=== PATIENT | male | born 1980 | race Caucasian/White ===

== ENCOUNTER 2022-04-12 05:30 | Emergency (ER) | payer SELFPAY ==
[2022-04-12] MEDS ORDERED: HYDROMORPHONE HCL 1 MG/ML INJ ONE (05:56)
[2022-04-12] MEDS ORDERED: KETOROLAC 30 MG/ML INJ ONE (05:56)
[2022-04-12] MEDS ORDERED: ONDANSETRON 4 MG/2 ML VIAL ONE (05:56)
[2022-04-12 06:08] LABS: Absolute Lymphocytes (CBC) 3.2 K/uL (0.7-4.9); Hematocrit 44.9 % (39.6-49.0); Lymphocytes % 35.2 % (15.3-44.8); MCV 86.2 fL (80-100); RBC Red Blood Cell Count 5.21 M/uL (4.33-5.43)
[2022-04-12 06:27] LABS: Bilirubin Total 0.5 mg/dL (0.2-1.0); Potassium 3.9 mmol/L (3.5-5.1); Protein, Total 7.4 g/dL (6.4-8.2)
[2022-04-12 07:02] VITALS: TEMP 97.9
[2022-04-12 07:15] VITALS: BP 129/93; O2SAT 94
--- NOTE | 2022-04-12 09:34 | RAD REPORT ---
EXAM DESCRIPTION: CT scan of the abdomen and pelvis without contrast CLINICAL HISTORY: ABD PAIN [facility] MAIN TECHNIQUE: Helical CT examination of the abdomen and pelvis was performed from the top of the domes of the diaphragm to the pubic symphysis without the administration of intravenous or oral contrast as per renal stone protocol. Sagittal and coronal reconstructions were performed for review. This exa m was performed according to our departmental dose-optimization program, which includes automated exp osure control, adjustment of the mA and/or kV according to patient size and/or use of iterative recon struction technique. COMPARISON: None FINDINGS: Lower chest: The lower lung parenchyma appears unremarkable. There is no infiltrate, e ffusion or pneumothorax. Small hiatal hernia noted at the GE junction. The visualized cardiac and pos terior mediastinal structures are otherwise unremarkable. ABDOMEN: Organs: The liver appears unremarkable. There is no evidence for mass or intrahepatic biliary ducta l dilatation. The gallbladder appears unremarkable. There is no evidence for stone, gallbladder wa ll thickening or pericholecystic fluid. The pancreas, adrenal glands and spleen appear unremarkabl e. Kidneys: There is mild right-sided hydronephrosis extending down to a 2 mm stone at the right UPJ o n image 40. No left-sided hydronephrosis or ureterolithiasis. No nephrolithiasis seen on either side. Bowel: Colonic diverticulosis is identified. No focal inflammatory changes are seen to suggest ac ruel diverticulitis.The large and small bowel of the abdomen and pelvis is otherwise unremarkable. The re is no evidence for bowel obstruction. The appendix is seen adjacent to the cecum and appears nor mal. PELVIS: The urinary bladder appears unremarkable. No intrapelvic free fluid or free air identified. No lympha denopathy seen. The prostate and seminal vesicles are unremarkable. Bones and soft tissues: No acute osseous abnormalities are identified. The soft tissues are unremar kable. IMPRESSION: There is a 2 mm stone at the right UPJ with mild right-sided hydronephrosis. No other acute process seen in the abdomen/pelvis. Mild colonic diverticulosis without evidence of diverticulitis. Normal appendix. Small hiatal hernia. Electronically signed by: Dawood Cádrenas MD 04/12/2022 6:17 AM [facility] [employer] [id number] Due to temporary technical issues with the PACS/Fluency reporting system, reports are being signed by the in house radiologists without review as a courtesy to insure prompt reporting. The interpreting radiologist is fully responsible for the content of the report.
--- NOTE | 2022-04-28 15:22 | ER ---
Nurse's Notes [facility] Name: Jean Paul Kemp II Age: 41 yrs Sex: Male : 1980 Arrival Date: 04/12/2022 Time: 05:33 Bed 5 Private MD: Diagnosis: Ureterolithiasis, right kidney stone, hydronephrosis Presentation: 04/12 05:46 Chief complaint: Patient states: he started having severe lower back pain and urinating bb blood this morning has had lithotripsy in the past for an 8mm kidney stone. Coronavirus screen: At this time, the client does not indicate any symptoms associated with coronavirus-19. Ebola Screen: No symptoms or risks identified at this time. Initial Sepsis Screen: Does the patient meet any 2 criteria? No. Patient's initial sepsis screen is negative. Does the patient have a suspected source of infection? No. Patient's initial sepsis screen is negative. Risk Assessment: Do you want to hurt yourself or someone else? Patient reports no desire to harm self or others. Onset of symptoms was April 12, 2022. 05:46 Method Of Arrival: Ambulatory bb 05:46 Acuity: ANNELIESE 2 bb Historical: - Allergies: 05:48 PENICILLINS; bb 05:48 Chocolate; bb - Home Meds: 05:48 None [Active]; bb - PMHx: 05:48 kidney stones; bb - PSHx: 05:48 Lithotripsy; bb - Immunization history:: vaccinated. - Social history:: Smoking status: Patient denies any tobacco usage or history of. Screenin:02 [facility] ED Fall Risk Assessment (Adult) History of falling in the last 3 months, bb including since admission No falls in past 3 months (0 pts) Confusion or Disorientation No (0 pts) Intoxicated or Sedated No (0 pts) Impaired Gait No (0 pts) Score/Fall Risk Level 0 - 2 = Low Risk Oriented to surroundings, Maintained a safe environment. Abuse screen: Denies threats or abuse. Nutritional screening: No deficits noted. Tuberculosis screening: No symptoms or risk factors identified. Assessment: 06:02 General: Appears uncomfortable, ill, Behavior is cooperative, anxious. Pain: Complains bb of pain in back Pain currently is 10 out of 10 on a pain scale. Neuro: Level of Consciousness is awake, alert, obeys commands, Oriented to person, place, time, situation. Cardiovascular: Capillary refill < 3 seconds Patient's skin is warm and dry. Respiratory: Respiratory effort is unlabored, Respiratory pattern is regular. GI: Abdomen is non-distended. : Reports blood in urine. Derm: Skin is pink, warm \T\ dry. Musculoskeletal: Circulation, motion, and sensation intact. 06:25 Reassessment: Patient is alert, oriented x 3, equal unlabored respirations, skin bb warm/dry/pink. Patient states feeling better. Patient states symptoms have improved. 06:38 Reassessment: Patient appears in no apparent distress at this time. Panda FORTUNE at bedside.aa9 06:47 Reassessment: Patient appears in no apparent distress at this time. Patient is alert, aa9 oriented x 3, equal unlabored respirations, skin warm/dry/pink. pt understand instructions and medication prescription, denies concerns Patient states feeling better. Patient states symptoms have improved. Vital Signs: 05:46 BP 147 / 107; Pulse 63; Resp 20 S; Temp 97.9(O); Pulse Ox 99% on R/A; Weight 90.72 kg bb (R); Height 5 ft. 9 in. (R); Pain 10/10; 06:15 BP 127 / 89; Pulse 59; Resp 16 S; Pulse Ox 96% on R/A; aa9 06:26 Pain 3/10; bb 06:30 BP 129 / 93; Pulse 62; Resp 16; Pulse Ox 94% on R/A; aa9 05:46 Body Mass Index 29.53 (90.72 kg, 175.26 cm) bb 05:46 Pain Scale: Adult bb 06:26 Pain Scale: Adult bb ED Course: 05:33 Patient arrived in ED. [id number] 05:35 Lupe Mosqueda MD is Attending Physician. sp3 05:48 Triage completed. bb 05:48 Arm band placed on Patient placed in a hallway bed, on a stretcher, on pulse oximetry. bb 05:49 Initial lab(s) drawn, by me, sent to lab. Inserted saline lock: 20 gauge in right bb antecubital area, using aseptic technique. Blood collected. 06:02 Patient has correct armband on for positive identification. Placed in gown. Call light bb in reach. Side rails up X 1. Pulse ox on. NIBP on. 06:05 Stone Protocol In Process Unspecified. EDMS 06:38 No provider procedures requiring assistance completed. aa9 06:47 IV discontinued, intact, bleeding controlled, No redness/swelling at site. Pressure aa9 dressing applied. Administered Medications: 05:53 Drug: HYDROmorphone IVP 1 mg Route: IVP; Site: right antecubital; bb 06:24 Follow up: Response: Pain is decreased bb 05:57 Drug: Ondansetron IVP 4 mg Route: IVP; Site: right antecubital; bb 06:24 Follow up: Response: No adverse reaction bb 06:00 Drug: TORadol - Ketorolac IVP 15 mg Route: IVP; Site: right antecubital; bb 06:25 Follow up: Response: Pain is decreased bb Medication: 06:02 VIS not applicable for this client. bb Outcome: 06:37 Discharge ordered by . efra 06:47 Discharged to home aa9 06:47 Condition: stable 06:47 Discharge instructions given to patient, Instructed on discharge instructions, follow up and referral plans. medication usage, Demonstrated understanding of instructions, follow-up care, medications, Prescriptions given X 1. 06:48 Patient left the ED. aa9 Signatures: Dispatcher [employer] EDJeanne Devine RN RN bb Lupe Mosqueda MD MD sp3 Linda Dickey6 Amy Orozco RN RN aa9
--- NOTE | 2022-04-28 15:22 | EDPHYS ---
Physician Documentation [facility] Name: Jean Paul Kemp II Age: 41 yrs Sex: Male : 1980 Arrival Date: 04/12/2022 Time: 05:33 Bed 5 Private MD: ED Physician Lupe Mosqueda HPI: 04/12 05:59 This 41 yrs old Male presents to ER via Ambulatory with complaints of Low Back Pain, sp3 Urinary Problem, Nausea/Vomiting. 05:59 41-year-old male with a history of kidney stones with the last one being in 2017 at 8 sp3 mm requiring lithotripsy, now presents with chief complaint right-sided flank pain that started approximately 3:30 AM which is waxing and waning and got worse about an hour ago after which she decided to come to the ED for further intervention. Patient has no other past medical history or past surgical history. On review of systems, he denies fever, URI symptoms, chest pain, shortness of breath, intra-abdominal pain, diarrhea, rash, syncope, or any other signs or symptoms. He does endorse nausea with mild dry heaves vomiting.. Historical: - Allergies: 05:48 PENICILLINS; bb 05:48 Chocolate; bb - Home Meds: 05:48 None [Active]; bb - PMHx: 05:48 kidney stones; bb - PSHx: 05:48 Lithotripsy; bb - Immunization history:: vaccinated. - Social history:: Smoking status: Patient denies any tobacco usage or history of. ROS: 06:00 Constitutional: Negative for fever, chills, and weight loss, Eyes: Negative for injury, sp3 pain, redness, and discharge, ENT: Negative for injury, pain, and discharge, Neck: Negative for injury, pain, and swelling, Cardiovascular: Negative for chest pain, palpitations, and edema, Respiratory: Negative for shortness of breath, cough, wheezing, and pleuritic chest pain, MS/Extremity: Negative for injury and deformity, Skin: Negative for injury, rash, and discoloration, Neuro: Negative for headache, weakness, numbness, tingling, and seizure, Psych: Negative for depression, anxiety, suicide ideation, homicidal ideation, and hallucinations, Allergy/Immunology: Negative for hives, rash, and allergies, Endocrine: Negative for neck swelling, polydipsia, polyuria, polyphagia, and marked weight changes. 06:00 All other systems are negative. Exam: 06:01 Constitutional: This is a well developed, well nourished patient who is awake, alert, sp3 and in no acute distress. Head/Face: Normocephalic, atraumatic. Eyes: Pupils equal round and reactive to light, extra-ocular motions intact. Lids and lashes normal. Conjunctiva and sclera are non-icteric and not injected. Cornea within normal limits. Periorbital areas with no swelling, redness, or edema. Neck: Trachea midline, no thyromegaly or masses palpated, and no cervical lymphadenopathy. Supple, full range of motion without nuchal rigidity, or vertebral point tenderness. No Meningismus. Chest/axilla: Normal chest wall appearance and motion. Nontender with no deformity. No lesions are appreciated. Cardiovascular: Regular rate and rhythm with a normal S1 and S2. No gallops, murmurs, or rubs. Normal PMI, no JVD. No pulse deficits. Respiratory: Lungs have equal breath sounds bilaterally, clear to auscultation and percussion. No rales, rhonchi or wheezes noted. No increased work of breathing, no retractions or nasal flaring. Abdomen/GI: Soft, non-tender, with normal bowel sounds. No distension or tympany. No guarding or rebound. No evidence of tenderness throughout. Skin: Warm, dry with normal turgor. Normal color with no rashes, no lesions, and no evidence of cellulitis. MS/ Extremity: Pulses equal, no cyanosis. Neurovascular intact. Full, normal range of motion. Neuro: Awake and alert, GCS 15, oriented to person, place, time, and situation. Cranial nerves II-XII grossly intact. Motor strength 5/5 in all extremities. Sensory grossly intact. Cerebellar exam normal. Normal gait. Psych: Awake, alert, with orientation to person, place and time. Behavior, mood, and affect are within normal limits. 06:01 Back: Right CVA tenderness. Vital Signs: 05:46 BP 147 / 107; Pulse 63; Resp 20 S; Temp 97.9(O); Pulse Ox 99% on R/A; Weight 90.72 kg bb (R); Height 5 ft. 9 in. (R); Pain 10/10; 06:15 BP 127 / 89; Pulse 59; Resp 16 S; Pulse Ox 96% on R/A; aa9 06:26 Pain 3/10; bb 06:30 BP 129 / 93; Pulse 62; Resp 16; Pulse Ox 94% on R/A; aa9 05:46 Body Mass Index 29.53 (90.72 kg, 175.26 cm) bb 05:46 Pain Scale: Adult bb 06:26 Pain Scale: Adult bb MDM: 05:39 Patient medically screened. sp3 06:01 Data reviewed: vital signs, nurses notes, lab test result(s), radiologic studies. ED sp3 course: 41-year-old male with right flank pain with likely kidney stone/ureterolithiasis. Will obtain CT scan kidney stone protocol, laboratory values, urine analysis and administer analgesics as necessary along with antiemetics for symptomatic treatment. I am not highly suspicious for any other pathology including UTI/pyelonephritis spectrum, AAA, intestinal pathology, or any other critical findings at this time. Disposition to be based on patient course as well as data with likely discharge with urology follow-up.. 06:35 ED course: Patient much improved after pain medication. CT scan demonstrates 2 mm stone sp3 at the right UPJ with mild hydronephrosis. Given patient's clinical picture and complete normal serum laboratory values, we will discharge patient home on oral NSAIDs with urology follow-up.. 04/12 05:47 Order name: CBC with Diff; Complete Time: 06:29 sp3 04/12 05:47 Order name: CMP; Complete Time: 06:29 sp3 04/12 05:47 Order name: Lipase; Complete Time: 06:29 sp3 04/12 06:05 Order name: Stone Protocol EDMS 04/12 05:47 Order name: IV Saline Lock; Complete Time: 06:01 sp3 04/12 05:47 Order name: Labs collected and sent; Complete Time: 06:01 sp3 Administered Medications: 05:53 Drug: HYDROmorphone IVP 1 mg Route: IVP; Site: right antecubital; bb 06:24 Follow up: Response: Pain is decreased bb 05:57 Drug: Ondansetron IVP 4 mg Route: IVP; Site: right antecubital; bb 06:24 Follow up: Response: No adverse reaction bb 06:00 Drug: TORadol - Ketorolac IVP 15 mg Route: IVP; Site: right antecubital; bb 06:25 Follow up: Response: Pain is decreased bb Disposition Summary: 04/12/22 06:37 Discharge Ordered Location: Home sp3 Condition: Stable sp3 Diagnosis - Ureterolithiasis, right kidney stone, hydronephrosis sp3 Discharge Instructions: - Discharge Summary Sheet sp3 - Kidney Stones sp3 Forms: - Medication Reconciliation Form sp3 - Thank You Letter sp3 - Antibiotic Education sp3 - Prescription Opioid Use sp3 Prescriptions: - Diclofenac Sodium 75 mg Oral Tablet Sustained Release - take 1 tablet by ORAL route 2 times per day; 30 tablet; Refills: 0, Product sp3 Selection Permitted Signatures: Dispatcher [employer] Jeanne Cox RN RN bb Patel, Setul, MD MD sp3 Corrections: (The following items were deleted from the chart) 06:05 05:48 Abdomen Pelvis Wo Con+CT.RAD.BRZ ordered. EDMS EDMS
== END 2022-04-12 06:48 | disposition home or self-care (01) ==
LOC: ER 05:30
DX: N13.2 Hydronephrosis with renal and ureteral calculous obstruction (principal); Z87.442 Personal history of urinary calculi; Z88.0 Allergy status to penicillin; Z91.018 Allergy to other foods
CPT/HCPCS: 36415; 74176; 76377; 80053; 83690; 85025; 96374; 96375; 99284; J1170; J2405

== ENCOUNTER 2022-04-16 12:26 | Emergency (ER) | payer SELFPAY ==
[2022-04-16] MEDS ORDERED: KETOROLAC 30 MG/ML INJ ONE (13:04)
[2022-04-16] MEDS ORDERED: NA CHLORIDE 0.9% 1,000 ML ONE ×2 (13:04→16:10)
[2022-04-16 13:11] LABS: Absolute Lymphocytes (CBC) 2.9 K/uL (0.7-4.9); Hematocrit 44.5 % (39.6-49.0); Lymphocytes % 29.6 % (15.3-44.8); MCV 86.4 fL (80-100); MPV 9.4 fL (7.6-11.3); RBC Red Blood Cell Count 5.15 M/uL (4.33-5.43)
[2022-04-16 13:28] LABS: Albumin 4.1 g/dL (3.4-5.0); Bilirubin Total 0.4 mg/dL (0.2-1.0); Potassium 4.2 mmol/L (3.5-5.1); Protein, Total 7.7 g/dL (6.4-8.2)
[2022-04-16] MEDS ORDERED: MAGNESIUM SULFATE 1 gm IVPB 1 GM/100 ML BAG IV ONE (13:30)
[2022-04-16] MEDS ORDERED: MORPHINE 4 MG/ML SYR ONE (16:09)
[2022-04-16] MEDS ORDERED: TAMSULOSIN 0.4 MG SR CAP ONE (16:10)
[2022-04-16] MEDS ORDERED: ONDANSETRON 4 MG/2 ML VIAL ONE (16:10)
[2022-04-16 16:38] LABS: Urine Blood Negative (Negative); Urine Glucose Negative (Negative); Urine Protein Negative (Negative); Urine Specific Gravity 1.015 (1.005-1.030); Urine pH 6.5 (5.0-7.0)
[2022-04-16 19:14] VITALS: TEMP 97.7
[2022-04-16 19:23] VITALS: O2SAT 99
[2022-04-16 19:24] VITALS: BP 123/86
--- NOTE | 2022-04-28 17:19 | EDPHYS ---
Physician Documentation [facility] Name: Jean Paul Kemp II Age: 41 yrs Sex: Male : 1980 Arrival Date: 04/16/2022 Time: 12:27 Bed 7 Private MD: ED Physician Yasir Womack HPI: 04/16 12:50 This 41 yrs old Male presents to ER via Ambulatory with complaints of Flank Pain - jmm right. 12:50 The patient complains of pain in the right flank. Onset: The symptoms/episode jmm began/occurred acutely, today. Is a 41-year-old male with history of kidney stones presents emerged part with complaints of right flank pain. Patient states he was initially diagnosed 3 days ago. Was prescribed diclofenac. Patient states pain intensified this morning. Denies any vomiting or diarrhea. Denies fever. Denies dysuria.. Historical: - Allergies: 12:41 PENICILLINS; kr3 12:41 Chocolate; kr3 - PMHx: 12:41 Kidney stones; kr3 - PSHx: 12:41 Lithotripsy; kr3 - Immunization history:: Adult Immunizations up to date, Adult Immunizations not up to date. - Social history:: Smoking status: Smoking status: Patient denies any tobacco usage or history of. ROS: 12:50 Constitutional: Negative for fever, chills, and weight loss, Cardiovascular: Negative jmm for chest pain, palpitations, and edema, Respiratory: Negative for shortness of breath, cough, wheezing, and pleuritic chest pain. 12:50 Back: Positive for flank pain, on the right. 12:50 All other systems are negative. Exam: 12:50 Head/Face: atraumatic. Eyes: EOMI, no conjunctival erythema appreciated ENT: Moist jmm Mucus Membranes Neck: Trachea midline, Supple Chest/axilla: Normal chest wall appearance and motion. Cardiovascular: Regular rate and rhythm. No edema appreciated Respiratory: Normal respirations, no respiratory distress appreciated Abdomen/GI: Non distended 12:50 MS/ Extremity: Moves all extremities, no obvious deformities appreciated, no edema noted to the lower extremities Neuro: Awake and alert Psych: Behavior is normal, Mood is normal, Patient is cooperative and pleasant 12:50 Constitutional: The patient appears alert, awake, uncomfortable. 12:50 Back: CVA tenderness, that is mild, is noted on the right. Vital Signs: 12:39 BP 144 / 93; Pulse 70; Resp 22; Temp 97.7; Pulse Ox 99% on R/A; Weight 90.72 kg; Height kr3 5 ft. 10 in. ; Pain 10/10; 13:02 BP 132 / 93; Pulse 68; Resp 18; Pulse Ox 100% on R/A; Pain 10/10; ld1 13:44 BP 129 / 81; Pulse 61; Resp 18; Pulse Ox 99% on R/A; Pain 9/10; ld1 14:18 BP 118 / 79; Pulse 53; Resp 18; Pulse Ox 99% on R/A; ld1 14:45 BP 128 / 80; Pulse 69; Resp 18; Pulse Ox 100% ; ld1 15:49 BP 109 / 80; Pulse 64; Resp 18; Pulse Ox 99% on R/A; ld1 16:42 BP 123 / 86; Pulse 62; Resp 18; Pulse Ox 99% on R/A; ld1 12:39 Body Mass Index 28.70 (90.72 kg, 177.8 cm) kr3 12:39 Pain Scale: Adult kr3 13:02 Pain Scale: Adult ld1 13:44 Pain Scale: Adult ld1 MDM: 12:50 [facility] 17:38 Differential diagnosis: nephrolithiasis. Data reviewed: vital signs, nurses notes, lab [facility] test result(s). I considered the following discharge prescriptions or medication management in the emergency department Medications were administered in the Emergency Department. See MAR. External Records Reviewed: NURSING TECHN aware negative for hx of controlled substances. Counseling: I had a detailed discussion with the patient and/or guardian regarding: the historical points, exam findings, and any diagnostic results supporting the discharge/admit diagnosis, radiology results, the need for outpatient follow up, to return to the emergency department if symptoms worsen or persist or if there are any questions or concerns that arise at home. ED course: Pain relieved in the ED. Patient prescribed Flomax and analgesics to help with the discomfort. Patient otherwise advised to follow-up with urology.. 04/16 12:51 Order name: CBC with Diff; Complete Time: 13:13 [facility] 04/16 12:51 Order name: CMP; Complete Time: 13:31 [facility] 04/16 12:51 Order name: Lipase; Complete Time: 13:31 [facility] 04/16 16:39 Order name: Urine Dipstick-Ancillary; Complete Time: 16:43 [facility] 04/16 12:51 Order name: IV Saline Lock; Complete Time: 13:02 [facility] 04/16 12:51 Order name: Labs collected and sent; Complete Time: 13:02 [facility] 04/16 16:27 Order name: Urine Dipstick-Ancillary (obtain specimen); Complete Time: 16:42 [facility] Administered Medications: 13:01 Drug: Ketorolac IVP 30 mg Route: IVP; Site: left antecubital; ld1 13:29 Follow up: Response: No adverse reaction; Pain is decreased ld1 13:01 Drug: NS 0.9% IV 1000 ml Route: IV; Rate: 1 bolus; Site: left antecubital; ld1 14:34 Follow up: Response: No adverse reaction; IV Status: Completed infusion; IV Intake: ld1 1000ml 13:28 Drug: Magnesium Sulfate IVPB 1 grams Route: IVPB; Infused Over: 1 hrs; Site: left ld1 antecubital; 14:30 Follow up: Response: No adverse reaction; IV Status: Completed infusion; IV Intake: nj1 100ml 16:12 Drug: morphine IVP or IV 4 mg Route: IVP; Infused Over: 4 mins; Site: left antecubital; ld1 16:12 Drug: Ondansetron IVP 4 mg Route: IVP; Site: left antecubital; ld1 16:12 Drug: NS 0.9% IV 1000 ml Route: IV; Rate: 1 bolus; Site: left antecubital; ld1 16:12 Drug: Flomax PO 0.4 mg Route: PO; ld1 Disposition: 19:04 Co-signature as Attending Physician, Yasir Womack MD I reviewed the patient's care rt provided by the Advanced Practice Provider and agree with the diagnosis and treatment plan. Disposition Summary: 04/16/22 17:40 Discharge Ordered Location: Home [facility] Condition: Stable [facility] Diagnosis - Calculus of ureter [facility]up[facility] - With: Dimitris Bianchi MD - When: 2 - 3 days - Reason: Recheck today's complaints, Continuance of care, Re-evaluation by your physician Discharge Instructions: - Discharge Summary Sheet [facility] - [facility]ney Stones [facility] - Dietary Guidelines to Help Prevent [facility]ney Stones [facility] Forms: - Medication Reconciliation Form [facility] - Thank You Letter [facility] - Antibiotic Education [facility] - Prescription Opioid Use [facility] Prescriptions: - ondansetron 4 mg Oral Tablet,disintegrating - take 1 tablet by ORAL route every 4-6 hours As needed as needed for nausea and jmm vomiting; 20 tablet; Refills: 0, Product Selection Permitted - Flomax 0.4 mg Oral capsule - take 1 capsule by ORAL route every 24 hours; 10 capsule; Refills: 0, Product [facility] Selection Permitted - Ultracet 37.5-325 mg Oral Tablet - take 1 tablet by ORAL route every 6 hours - for up to 5 days; do not exceed 8 jmm tablets per day.; 20 tablet; Refills: 0, Product Selection Permitted Signatures: Dispatcher [employer] EDDawood Finney PA PA [facility] Melinda Kearney, RN RN ld1 Sandrine Elaine RN RN kr3 Yasir Womack MD MD rt Michelle Izquierdo RN nj1
--- NOTE | 2022-04-28 17:19 | ER ---
Nurse's Notes [facility] Name: Jean Paul Kemp II Age: 41 yrs Sex: Male : 1980 Arrival Date: 04/16/2022 Time: 12:27 Bed 7 Private MD: Diagnosis: Calculus of ureter Presentation: 04/16 12:39 Chief complaint: Patient states: lower right side flank pain. Coronavirus screen: kr3 Vaccine status: Patient reports receiving the 2nd dose of the covid vaccine. Ebola Screen: Patient denies travel to an Ebola-affected area in the 21 days before illness onset. Initial Sepsis Screen: Does the patient meet any 2 criteria? No. Patient's initial sepsis screen is negative. Does the patient have a suspected source of infection? No. Patient's initial sepsis screen is negative. Risk Assessment: Do you want to hurt yourself or someone else? Patient reports no desire to harm self or others. Onset of symptoms was April 16, 2022. 12:39 Method Of Arrival: Ambulatory [facility] 12:39 Acuity: ANNELIESE 3 kr3 Triage Assessment: 12:42 General: Appears distressed, uncomfortable, Behavior is cooperative, appropriate for kr3 age, restless. Pain: Complains of pain in low back area, right mid back and right low back. Historical: - Allergies: 12:41 PENICILLINS; kr3 12:41 Chocolate; kr3 - PMHx: 12:41 Kidney stones; kr3 - PSHx: 12:41 Lithotripsy; kr3 - Immunization history:: Adult Immunizations up to date, Adult Immunizations not up to date. - Social history:: Smoking status: Smoking status: Patient denies any tobacco usage or history of. Screenin:02 [facility] ED Fall Risk Assessment (Adult) History of falling in the last 3 months, ld1 including since admission No falls in past 3 months (0 pts). Abuse screen: Denies threats or abuse. Denies injuries from another. Nutritional screening: No deficits noted. Tuberculosis screening: No symptoms or risk factors identified. Assessment: 13:02 General: Appears in no apparent distress. uncomfortable, Behavior is cooperative, ld1 anxious. Pain: Complains of pain in back and right low back and right mid back and low back area Pain does not radiate. Pain currently is 10 out of 10 on a pain scale. Quality of pain is described as sharp, shooting, throbbing, Pain began 4 hours ago. Is continuous. Neuro: Level of Consciousness is awake, alert, obeys commands, Oriented to person, place, time, situation. Cardiovascular: Capillary refill < 3 seconds Patient's skin is warm and dry. Respiratory: Airway is patent Respiratory effort is even, unlabored. GI: Abdomen is flat, non-distended. : Reports pain in bilateral flank(s). EENT: No signs and/or symptoms were reported regarding the EENT system. Derm: No signs and/or symptoms reported regarding the dermatologic system. Musculoskeletal: No signs and/or symptoms reported regarding the musculoskeletal system. 13:44 Reassessment: Patient and/or family updated on plan of care and expected duration. Pain ld1 level reassessed. Patient is alert, oriented x 3, equal unlabored respirations, skin warm/dry/pink. Patient states symptoms have not improved. 14:30 Reassessment: Patient appears in no apparent distress at this time. Patient and/or nj1 family updated on plan of care and expected duration. Pain level reassessed. Patient is alert, oriented x 3, equal unlabored respirations, skin warm/dry/pink. Patient states feeling better. Patient states symptoms have improved. 14:30 Pain: Complains of pain in right low back Pain currently is 3 out of 10 on a pain nj1 scale. at worst was 10 out of 10 on a pain scale. Vital Signs: 12:39 BP 144 / 93; Pulse 70; Resp 22; Temp 97.7; Pulse Ox 99% on R/A; Weight 90.72 kg; Height kr3 5 ft. 10 in. ; Pain 10/10; 13:02 BP 132 / 93; Pulse 68; Resp 18; Pulse Ox 100% on R/A; Pain 10/10; ld1 13:44 BP 129 / 81; Pulse 61; Resp 18; Pulse Ox 99% on R/A; Pain 9/10; ld1 14:18 BP 118 / 79; Pulse 53; Resp 18; Pulse Ox 99% on R/A; ld1 14:45 BP 128 / 80; Pulse 69; Resp 18; Pulse Ox 100% ; ld1 15:49 BP 109 / 80; Pulse 64; Resp 18; Pulse Ox 99% on R/A; ld1 16:42 BP 123 / 86; Pulse 62; Resp 18; Pulse Ox 99% on R/A; ld1 12:39 Body Mass Index 28.70 (90.72 kg, 177.8 cm) kr3 12:39 Pain Scale: Adult kr3 13:02 Pain Scale: Adult ld1 13:44 Pain Scale: Adult ld1 ED Course: 12:27 Patient arrived in ED. am2 12:30 Dawood Pantoja PA is PHCP. [facility] 12:30 Yasir Womack MD is Attending Physician. jmm 12:41 Triage completed. kr3 12:42 Arm band placed on right wrist. Patient placed in an exam room, on a stretcher. kr3 12:57 Melinda Kearney RN is Primary Nurse. ld1 13:02 Patient has correct armband on for positive identification. Placed in gown. Bed in low ld1 position. Call light in reach. Side rails up X2. ekg monitor tech on. Pulse ox on. NIBP on. Door closed. Noise minimized. Warm blanket given. 13:02 No provider procedures requiring assistance completed. Inserted saline lock: 20 gauge ld1 in left antecubital area, using aseptic technique. Blood collected. 17:40 Dimitris Bianchi MD is Referral Physician. [facility] 18:03 IV discontinued, intact, bleeding controlled, No redness/swelling at site. Pressure ko1 dressing applied. Administered Medications: 13:01 Drug: Ketorolac IVP 30 mg Route: IVP; Site: left antecubital; ld1 13:29 Follow up: Response: No adverse reaction; Pain is decreased ld1 13:01 Drug: NS 0.9% IV 1000 ml Route: IV; Rate: 1 bolus; Site: left antecubital; ld1 14:34 Follow up: Response: No adverse reaction; IV Status: Completed infusion; IV Intake: ld1 1000ml 13:28 Drug: Magnesium Sulfate IVPB 1 grams Route: IVPB; Infused Over: 1 hrs; Site: left ld1 antecubital; 14:30 Follow up: Response: No adverse reaction; IV Status: Completed infusion; IV Intake: nj1 100ml 16:12 Drug: morphine IVP or IV 4 mg Route: IVP; Infused Over: 4 mins; Site: left antecubital; ld1 16:12 Drug: Ondansetron IVP 4 mg Route: IVP; Site: left antecubital; ld1 16:12 Drug: NS 0.9% IV 1000 ml Route: IV; Rate: 1 bolus; Site: left antecubital; ld1 16:12 Drug: Flomax PO 0.4 mg Route: PO; ld1 Medication: 13:02 VIS not applicable for this client. ld1 Intake: 14:30 IV: 100ml; Total: 100ml. nj1 14:34 IV: 1000ml; Total: 1100ml. ld1 Outcome: 17:40 Discharge ordered by . reagan 18:03 Discharged to home ambulatory. ko1 18:03 Condition: good 18:03 Discharge instructions given to patient, Instructed on discharge instructions, follow up and referral plans. medication usage, urine strainer, Demonstrated understanding of instructions, follow-up care, medications, Prescriptions given X 3. 18:15 Patient left the ED. ko1 Signatures: Dawood Pantoja PA PA jmm Moreno, Amanda am2 Melinda Kearney RN RN ld1 Sandrine Elaine RN RN kr3 Ana Noble, RN RN ko1 Michelle Izquierdo, GLYNN RN nj1
== END 2022-04-16 18:15 | disposition home or self-care (01) ==
LOC: ER 12:26
DX: N20.1 Calculus of ureter (principal); Z87.442 Personal history of urinary calculi; Z88.0 Allergy status to penicillin; Z91.018 Allergy to other foods
CPT/HCPCS: 36415; 80053; 81003; 83690; 85025; 96361; 96365; 96375; 99284; J2405; J3475; J7030

== ENCOUNTER 2023-11-26 20:17 | Emergency (ER) | payer OTHER ==
[2023-11-26] MEDS ORDERED: KETOROLAC 30 MG/ML INJ ONE (20:43)
[2023-11-26] MEDS ORDERED: NA CHLORIDE 0.9% 1,000 ML ONE (20:44)
[2023-11-26 20:58] LABS: Absolute Basophils 0.1 K/uL (0-0.5); Absolute Eosinophils 0.1 K/uL (0-0.5); Absolute Lymphocytes (CBC) 3.5 K/uL (0.7-4.9); Absolute Neutrophil 6.2 K/uL (1.8-8.0); Basophils % 0.9 % (0-1.3); Eosinophils % 1.4 % (0-4.4); Hematocrit 47.1 % (39.6-49.0); Hemoglobin 16.2 g/dL (13.6-17.9); Lymphocytes % 32.1 % (15.3-44.8); MCH 30.2 pg (27.0-35.0); MCHC 34.4 g/dL (32.0-36.0); MCV 87.8 fL (80-100); MPV 9.6 fL (7.6-11.3); Neutrophils % 56.6 % (41.7-73.7); Nucleated Red Blood Cells % 0.1 % (0-0); Platelets 166 thou/uL (152-406); RBC Red Blood Cell Count 5.36 M/uL (4.33-5.43); Red Cell Distribution Width 12.9 % (12.1-15.2)
[2023-11-26 20:59] LABS: Specific Gravity 1.013 (1.005-1.030); Urine Bilirubin NEGATIVE (Negative); Urine Blood Negative (Negative); Urine Clarity Clear (Clear); Urine Color Light-Yellow (Yellow); Urine Glucose NEGATIVE (Negative); Urine Ketones NEGATIVE (Negative); Urine Microscopic Reflex YN NO UMIC; Urine Nitrite NEGATIVE (Negative); Urine Protein NEGATIVE (Negative); Urine Urobilinogen Normal (Normal); Urine pH 5.5 (5.0-7.0)
[2023-11-26 21:21] LABS: Albumin 4.2 g/dL (3.4-5.0); Albumin/Globulin Ratio 1.1 (1.1-1.8); Anion Gap 7.8 mEq/L (5.0-15.0); Bilirubin Total 0.5 mg/dL (0.2-1.0); Potassium 3.8 mEq/L (3.5-5.1); Protein, Total 8.2 g/dL (6.4-8.2)
--- NOTE | 2023-11-26 22:02 | RAD REPORT ---
EXAMINATION: CT ABDOMEN AND PELVIS WITH CONTRAST CLINICAL INDICATION: Abdominal pain TECHNIQUE: CT abdomen and pelvis was performed, after the administration of 100 cc Isovue-300.. Sagit maria esther and coronal reconstructions were obtained. One or more of the following dose reduction techniques were used: Automated exposure control, adjustment of the mA and kV according to patient si ze, and iterative reconstruction. Unless otherwise specified, incidental findings do not require dedicated imaging follow-up. [id number]. Oral contrast was not given which limits evaluation of bowel and appendix. COMPARISON: 2022 FINDINGS: Tiny hepatic cyst. 1spleen, pancreas, adrenals and kidneys appear unremarkable No evidence of diverticulitis. Normal appendix. Small umbilical hernia. Spondylosis L5-S1. Small right inguinal hernia contains fat : IMPRESSION: No acute abnormality displayed
--- NOTE | 2023-11-27 00:26 | EDPHYS ---
Physician Documentation [facility] Name: Jean Paul Kemp II Age: 43 yrs Sex: Male : 1980 Arrival Date: 11/26/2023 Time: 20:17 Bed 8 Private MD: ED Physician Luis A Yu HPI: 11/25 20:39 This 43 yrs old Male presents to ER via Ambulatory with complaints of sp4 Constipation. 11/26 06:11 43-year-old male presents with complaint of constipation and left lower abdominal pain sp4 for the past 3 days. Historical: - Allergies: 11/25 20:39 Chocolate; cm10 20:39 PENICILLINS; cm10 - PMHx: 20:39 Kidney stones; Diverticulitis; cm10 - PSHx: 20:39 Lithotripsy; cm10 - Immunization history:: Adult Immunizations up to date. - Infectious Disease History:: Denies. - Social history:: Smoking status: Patient denies any tobacco usage or history of. - Family history:: not pertinent. ROS: 11/26 06:11 Constitutional: Negative for fever, chills, and weight loss, Positive for constipation sp4 and left lower quadrant pain All other systems are negative, Exam: 06:11 Constitutional: This is a well developed, well nourished patient who is awake, alert, sp4 and in no acute distress. Head/Face: Normocephalic, atraumatic. Eyes: Pupils equal round and reactive to light, extra-ocular motions intact. Lids and lashes normal. Conjunctiva and sclera are not injected. Cornea within normal limits. Periorbital areas with no swelling, redness, or edema. ENT: Nares patent. No nasal discharge, no septal abnormalities noted. Tympanic membranes are normal and external auditory canals are clear. Oropharynx with no redness, swelling, or masses, exudates, or evidence of obstruction, uvula midline. Mucous membranes moist. Neck: Trachea midline, no thyromegaly or masses palpated, and no cervical lymphadenopathy. Supple, full range of motion without nuchal rigidity, or vertebral point tenderness. Chest/axilla: Normal chest wall appearance and motion. Nontender with no deformity. No lesions are appreciated. Cardiovascular: Regular rate and rhythm with a normal S1 and S2. No gallops, murmurs, or rubs. Normal PMI, no JVD. No pulse deficits. Respiratory: Lungs have equal breath sounds bilaterally, clear to auscultation and percussion. No rales, rhonchi or wheezes noted. No increased work of breathing, no retractions or nasal flaring. Abdomen/GI: Soft, with normal bowel sounds. No distension or tympany. No guarding or rebound. Positive lower abdominal tenderness without rebound Back: No spinal tenderness. No costovertebral tenderness. Skin: Warm, dry with normal turgor. Normal color with no rashes, no lesions, and no evidence of cellulitis. MS/ Extremity: Pulses equal, no cyanosis. Neurovascular intact. Full, normal range of motion. Neuro: Awake and alert, GCS 15, oriented to person, place, time, and situation. Cranial nerves II-XII grossly intact. Motor strength 5/5 in all extremities. Sensory grossly intact. Psych: Awake, alert, with orientation to person, place and time. Behavior, mood, and affect are within normal limits Vital Signs: 11/25 20:37 BP 126 / 89; Pulse 79; Resp 16; Temp 97.8(IR); Pulse Ox 100% ; Weight 95.25 kg; Height cm10 5 ft. 9 in. ; Pain 6/10; 20:55 BP 110 / 89; Pulse 64; Resp 17; Temp 97.8; Pulse Ox 96% ; Pain 5/10; bm8 21:48 BP 127 / 87; Pulse 64; Resp 17; Temp 97.8; Pulse Ox 98% ; Pain 5/10; bm8 23:58 BP 118 / 84; Pulse 65; Resp 15; Temp 97.8; Pulse Ox 98% ; Pain 4/10; bm8 20:37 Body Mass Index 31.01 (95.25 kg, 175.26 cm) cm10 20:37 Pain Scale: Adult cm10 20:55 Pain Scale: Adult bm8 21:48 Pain Scale: Adult bm8 23:58 Pain Scale: Adult bm8 Troy Coma Score: 20:55 Eye Response: spontaneous(4). Motor Response: obeys commands(6). Verbal Response: bm8 oriented(5). Total: 15. 21:48 Eye Response: spontaneous(4). Motor Response: obeys commands(6). Verbal Response: bm8 oriented(5). Total: 15. 23:58 Eye Response: spontaneous(4). Motor Response: obeys commands(6). Verbal Response: bm8 oriented(5). Total: 15. 11/26 06:11 Eye Response: spontaneous(4). Motor Response: obeys commands(6). Verbal Response: sp4 oriented(5). Total: 15. MDM: 11/25 20:41 Medical Screening Exam initiated sp4 11/26 06:11 Differential Diagnosis abdominal pain, diverticulitis, constipation . Data reviewed: sp4 vital signs, nurses notes, old medical records, lab test result(s), radiologic studies, CT scan. Consideration of Admission/Observation Escalation of care including admission/observation considered. ED course: Patient's CT does not reveal any acute abnormalities. Stable for discharge home.. ED course: EXAMINATION: CTABDOMEN AND PELVIS WITH CONTRAST CLINICAL INDICATION: Abdominal pain TECHNIQUE: CT abdomen and pelvis was performed, after the administration of 100 cc Isovue-300.. Sagittal and coronal reconstructions were obtained. One or more of the following dose reduction techniques were used: Automated exposure control, adjustment of the mA and kV according to patient size, and iterative reconstruction. Unless otherwise specified, incidental findings do not require dedicated imaging follow-up. [id number]. Oral contrast was not given which limits evaluation of bowel and appendix. COMPARISON: 2022 FINDINGS: Tiny hepatic cyst. 1spleen, pancreas, adrenals and kidneys appear unremarkable No evidence of diverticulitis. Normal appendix. Small umbilical hernia. Spondylosis L5-S1. Small right inguinal hernia contains fat : IMPRESSION: No acute abnormality displayed . 11/25 20:40 Order name: CBC with Diff; Complete Time: 00:00 4 11/25 20:40 Order name: CMP; Complete Time: 00:00 sp4 11/25 20:40 Order name: Lipase; Complete Time: 00:00 sp4 11/25 20:40 Order name: Urinalysis w/ reflexes; Complete Time: 00:00 sp4 11/25 20:40 Order name: CT Abd/Pelvis - IV Contrast Only; Complete Time: 00:00 4 11/25 20:40 Order name: IV Saline Lock; Complete Time: 20:55 sp4 11/25 20:40 Order name: Labs collected and sent; Complete Time: 20:55 sp4 Administered Medications: 11/25 20:55 Drug: TORadol - Ketorolac IVP 15 mg IVP once Route: IVP; Site: right antecubital; bm8 22:10 Follow up: Response: No adverse reaction bm8 20:55 Drug: NS 0.9% IV 1000 ml IV at 1 bolus Per protocol; to be given as a bolus over 60 bm8 minutes Route: IV; Rate: 1 bolus; Site: right antecubital; 22:10 Follow up: Response: No adverse reaction; IV Status: Completed infusion; IV Intake: bm8 1000ml Disposition Summary: 11/27/23 00:25 Discharge Ordered Problem: new sp4 Symptoms: have improved sp4 Condition: Stable sp4 Diagnosis - Lower abdominal pain, unspecified sp4 - Constipation, unspecified sp4 Followup: sp4 - With: Jovon Crow MD - When: 7 - 10 days - Reason: Recheck today's complaints Discharge Instructions: - Discharge Summary Sheet sp4 - Clear Liquid Diet, Adult, [id number] sp4 Forms: - Patient Portal Instructions sp4 Signatures: Dispatcher [employer] Luis A Dockery MD MD sp4 Samantha Jhaveri, RN RN cm10 Tim Gimenez RN RN bm8 Corrections: (The following items were deleted from the chart) 20:41 20:41 CBC+H.LAB.BRZ ordered. EDMS EDMS 20:41 20:41 COMPREHENSIVE METABOLIC PANEL+C.LAB.BRZ ordered. EDMS EDMS 20:41 20:41 LIPASE+C.LAB.BRZ ordered. EDMS EDMS 20:41 20:41 Urinalysis+U.LAB.BRZ ordered. EDMS EDMS
--- NOTE | 2023-11-27 00:26 | ER ---
Nurse's Notes [facility] Name: Jean Paul Kemp II Age: 43 yrs Sex: Male : 1980 Arrival Date: 11/26/2023 Time: 20:17 Bed 8 Private MD: Diagnosis: Lower abdominal pain, unspecified;Constipation, unspecified Presentation: 11/25 20:37 Chief complaint: Patient states: LLQ abdominal pain and constipation X3 days. cm10 Coronavirus screen: Client denies travel out of the [place] in the last 14 days. Ebola Screen: Patient denies travel to an Ebola-affected area in the 21 days before illness onset. No symptoms or risks identified at this time. Initial Sepsis Screen: Does the patient meet any 2 criteria? No. Patient's initial sepsis screen is negative. Does the patient have a suspected source of infection? No. Patient's initial sepsis screen is negative. Risk Assessment: Do you want to hurt yourself or someone else? Patient reports no desire to harm self or others. Onset of symptoms was November 23, 2023. 20:37 Method Of Arrival: Ambulatory 10 20:37 Acuity: ANNELIESE 3 cm10 Triage Assessment: 20:39 General: Appears in no apparent distress. comfortable, Behavior is calm, cooperative. cm10 Neuro: No deficits noted. Level of Consciousness is awake, alert, obeys commands, Oriented to person, place, time, situation, Appropriate for age. Respiratory: No deficits noted. Airway is patent Respiratory effort is even, unlabored, Respiratory pattern is regular, symmetrical. Historical: - Allergies: 20:39 Chocolate; cm10 20:39 PENICILLINS; cm10 - PMHx: 20:39 Kidney stones; Diverticulitis; cm10 - PSHx: 20:39 Lithotripsy; cm10 - Immunization history:: Adult Immunizations up to date. - Infectious Disease History:: Denies. - Social history:: Smoking status: Patient denies any tobacco usage or history of. - Family history:: not pertinent. Screenin:55 [facility] ED Fall Risk Assessment (Adult) History of falling in the last 3 months, bm8 including since admission No falls in past 3 months (0 pts) Confusion or Disorientation No (0 pts) Intoxicated or Sedated No (0 pts) Impaired Gait No (0 pts) Mobility Assist Device Used No (0 pt) Altered Elimination No (0 pt) Score/Fall Risk Level 0 - 2 = Low Risk Oriented to surroundings, Maintained a safe environment, Educated pt \T\ family on fall prevention, incl call for assistance when getting out of bed, Assessed \T\ reinforced patient's understanding of fall precautions, Hourly rounding (assess needs \T\ fall precautionary measures) done, Used ambulatory aids as needed (educated on \T\ assisted with), Used gait belt as appropriate. Abuse screen: Denies threats or abuse. Nutritional screening: No deficits noted. Tuberculosis screening: No symptoms or risk factors identified. Assessment: 20:55 General: Appears in no apparent distress. comfortable, Behavior is calm, cooperative, bm8 appropriate for age. Pain: Complains of pain in left lower quadrant Pain does not radiate. Pain currently is 5 out of 10 on a pain scale. Quality of pain is described as sharp, Pain began today the pain got like this. Neuro: No deficits noted. Level of Consciousness is awake, alert, obeys commands, Oriented to person, place, time, situation, Appropriate for age. Cardiovascular: Denies chest pain, Heart tones S1 S2 present Capillary refill < 3 seconds in bilateral fingers Patient's skin is warm and dry. Pulses are all present. Respiratory: Airway is patent Respiratory effort is even, unlabored, Respiratory pattern is regular, symmetrical, Breath sounds are clear bilaterally. GI: Abdomen is round distended, Bowel sounds hypoactive in left lower quadrant Abdomen is tender to palpation in left lower quadrant Reports lower abdominal pain, Pain is 5 out of 10 on a pain scale. : No signs and/or symptoms were reported regarding the genitourinary system. EENT: No signs and/or symptoms were reported regarding the EENT system. Derm: No signs and/or symptoms reported regarding the dermatologic system. Musculoskeletal: No signs and/or symptoms reported regarding the musculoskeletal system. 21:48 Reassessment: Patient appears in no apparent distress at this time. No changes from bm8 previously documented assessment. Patient and/or family updated on plan of care and expected duration. Pain level reassessed. Patient is alert, oriented x 3, equal unlabored respirations, skin warm/dry/pink. 23:58 Reassessment: Patient appears in no apparent distress at this time. No changes from bm8 previously documented assessment. Patient and/or family updated on plan of care and expected duration. Pain level reassessed. Patient is alert, oriented x 3, equal unlabored respirations, skin warm/dry/pink. Vital Signs: 20:37 BP 126 / 89; Pulse 79; Resp 16; Temp 97.8(IR); Pulse Ox 100% ; Weight 95.25 kg; Height cm10 5 ft. 9 in. ; Pain 6/10; 20:55 BP 110 / 89; Pulse 64; Resp 17; Temp 97.8; Pulse Ox 96% ; Pain 5/10; bm8 21:48 BP 127 / 87; Pulse 64; Resp 17; Temp 97.8; Pulse Ox 98% ; Pain 5/10; bm8 23:58 BP 118 / 84; Pulse 65; Resp 15; Temp 97.8; Pulse Ox 98% ; Pain 4/10; bm8 20:37 Body Mass Index 31.01 (95.25 kg, 175.26 cm) cm10 20:37 Pain Scale: Adult cm10 20:55 Pain Scale: Adult bm8 21:48 Pain Scale: Adult bm8 23:58 Pain Scale: Adult bm8 Captiva Coma Score: 20:55 Eye Response: spontaneous(4). Motor Response: obeys commands(6). Verbal Response: bm8 oriented(5). Total: 15. 21:48 Eye Response: spontaneous(4). Motor Response: obeys commands(6). Verbal Response: bm8 oriented(5). Total: 15. 23:58 Eye Response: spontaneous(4). Motor Response: obeys commands(6). Verbal Response: bm8 oriented(5). Total: 15. 11/26 06:11 Eye Response: spontaneous(4). Motor Response: obeys commands(6). Verbal Response: sp4 oriented(5). Total: 15. ED Course: 11/25 20:21 Patient arrived in ED. gm2 20:21 Luis A Yu MD is Attending Physician. sp4 20:39 Triage completed. cm10 20:40 Arm band placed on Patient placed in waiting room. cm10 20:42 Nancy Dugan RN is Primary Nurse. br2 20:55 Patient has correct armband on for positive identification. Bed in low position. Call bm8 light in reach. Side rails up X 1. Client placed on continuous cardiac and pulse oximetry monitoring. NIBP monitoring applied. Pulse ox on. NIBP on. Door closed. Noise minimized. Pillow given. Verbal reassurance given. Head of bed elevated. 20:55 No provider procedures requiring assistance completed. Inserted saline lock: 20 gauge bm8 in right antecubital area, using aseptic technique. Blood collected. Flushed with 10 mL NS. Patient maintains SpO2 saturation greater than 95% on room air. 21:46 CT Abd/Pelvis - IV Contrast Only In Process Unspecified. EDMS 11/26 00:25 Jovon Crow MD is Referral Physician. sp4 00:31 Provided Education on: post er care. bm8 00:31 IV discontinued, intact, bleeding controlled, No redness/swelling at site. Pressure bm8 dressing applied. Administered Medications: 11/25 20:55 Drug: TORadol - Ketorolac IVP 15 mg IVP once Route: IVP; Site: right antecubital; bm8 22:10 Follow up: Response: No adverse reaction bm8 20:55 Drug: NS 0.9% IV 1000 ml IV at 1 bolus Per protocol; to be given as a bolus over 60 bm8 minutes Route: IV; Rate: 1 bolus; Site: right antecubital; 22:10 Follow up: Response: No adverse reaction; IV Status: Completed infusion; IV Intake: bm8 1000ml Medication: 20:55 VIS not applicable for this client. bm8 Intake: 22:10 IV: 1000ml; Total: 1000ml. bm8 Outcome: 11/26 00:25 Discharge ordered by . sp4 00:31 Discharged to home ambulatory, bm8 00:31 Condition: stable 00:31 Discharge instructions given to patient, family, Instructed on discharge instructions, follow up and referral plans. safety practices, Demonstrated understanding of instructions, follow-up care, medications, 00:32 Patient left the ED. bm8 Signatures: Dispatcher [employer] EDNY Luis A Yu MD MD sp4 Samantha Jhaveri RN RN cm10 Tana [place] gm2 Tim Gimenez RN RN bm8 Nancy Dugan RN RN br2 Corrections: (The following items were deleted from the chart) 11/25 20:59 20:55 Pulse 64bpm; Resp 17bpm; Pulse Ox 96%; Temp 97.8F; Pain 5/10, Adult; bm8 bm8
[2023-11-27 07:13] VITALS: TEMP 97.8
[2023-11-27 07:15] VITALS: O2SAT 98
[2023-11-27 07:17] VITALS: BP 118/84
== END 2023-11-27 00:32 | disposition home or self-care (01) ==
LOC: ER 20:17
DX: K59.00 Constipation, unspecified (principal)
CPT/HCPCS: 85025; 36415; 81003; 83690; 80053; 74177; Q9967; J7030

== ENCOUNTER 2023-12-10 18:06 | Inpatient (IN) | payer BC ==
--- NOTE | 2023-12-10 19:51 | RAD REPORT ---
Procedure: Chest Single View HISTORY: Chest pain COMPARISON: none FINDINGS: The lungs appear clear of acute infiltrate. No significant pleural effusion noted. The heart is normal size. IMPRESSION: No acute abnormality is displayed.
[2023-12-10] MEDS ORDERED: ASPIRIN 81 MG CHEWABLE TABLET ONE (20:26)
[2023-12-10] MEDS ORDERED: METOPROLOL XL 50 MG TAB PO ONE (20:26)
[2023-12-10] MEDS ORDERED: FAMOTIDINE 20 MG/2 ML VIAL IV ONE (20:26)
[2023-12-10 20:29] LABS: Absolute Basophils 0.1 K/uL (0-0.5); Absolute Lymphocytes (CBC) 2.3 K/uL (0.7-4.9); Absolute Monocytes 1.2 K/uL (0.1-1.3); Absolute Neutrophil 6.2 K/uL (1.8-8.0); Basophils % 0.8 % (0-1.3); Eosinophils % 0.5 % (0-4.4); Hemoglobin 16.1 g/dL (13.6-17.9); MCH 30.1 pg (27.0-35.0); MCHC 34.3 g/dL (32.0-36.0); MCV 87.6 fL (80-100); MPV 10.2 fL (7.6-11.3); Monocytes % 12.2 % (3.3-12.3); Neutrophils % 63.5 % (41.7-73.7); Nucleated Red Blood Cells % 0.1 % (0-0); Platelets 143 thou/uL (152-406); RBC Red Blood Cell Count 5.36 M/uL (4.33-5.43); Red Cell Distribution Width 13.2 % (12.1-15.2)
[2023-12-10 20:33] LABS: PT Prothrombin Time 13.5 SECONDS (9.4-12.5); Protime INR 1.21
[2023-12-10 20:50] LABS: Specific Gravity 1.028 (1.005-1.030); Sqamous Epithelial None Seen /HPF (None Seen); Urine Bacteria None Seen /HPF (<20); Urine Bilirubin NEGATIVE (Negative); Urine Blood Trace (Negative); Urine Clarity Clear (Clear); Urine Color Light-Yellow (Yellow); Urine Culture Reflex Order NOT NEEDED; Urine Glucose NEGATIVE (Negative); Urine Ketones NEGATIVE (Negative); Urine Microscopic Reflex YN ORDER UMIC; Urine Mucus 1+ /HPF (None Seen); Urine Nitrite NEGATIVE (Negative); Urine Protein TRACE (Negative); Urine RBC <5 /HPF (None Seen); Urine Urobilinogen Normal (Normal); Urine WBC <5 /HPF (<5)
[2023-12-10 20:57] LABS: ALT/SGPT 43 U/L (16-61); AST/SGOT 20 U/L (15-37); Albumin 3.9 g/dL (3.4-5.0); Albumin/Globulin Ratio 0.9 (1.1-1.8); Alkaline Phosphatase 99 U/L (45-117); Anion Gap 7.8 mEq/L (5.0-15.0); BUN Blood Urea Nitrogen 18 mg/dL (7-18); Bicarbonate 27 mEq/L (21-32); Bilirubin Total 0.4 mg/dL (0.2-1.0); Globulin 4.3 g/dL (2.3-3.5); Glomerular Filtration Rate 72 ml/min (=/>90); Glucose Level 105 mg/dL (74-106); Lipase 47 U/L (13-75); Magnesium 2.1 mg/dL (1.6-2.4); NT PRO-BNP 59 pg/mL (<125); Potassium 3.8 mEq/L (3.5-5.1); Protein, Total 8.2 g/dL (6.4-8.2); Sodium Level 136 mEq/L (136-145)
[2023-12-10 21:00] LABS: Bilirubin Direct < 0.2 mg/dL (0-0.2); Bilirubin Indirect, Calculated 0.2 mg/dL (0.2-0.8)
[2023-12-10 21:03] LABS: Troponin High Sensitivity 65.6 pg/mL (<58.9)
--- NOTE | 2023-12-10 21:51 | RAD REPORT ---
EXAM: CTA of the chest, abdomen and pelvis HISTORY: Chest and abdominal pain COMPARISON: November 2023 CT abdomen TECHNIQUE: Multiple contiguous axial images were obtained a CTA of the chest and abdomen with contras t per aortic dissection protocol. Sagittal and coronal 3-D MIP reformats were performed. 100 cc Isovue-370 administered intravenously.Automated exposure control, adjustment of the mA and kV accordi ng to the patient size, and iterative reconstruction. Unless otherwise specified, incidental findings do not require dedicated imaging follow-up. FINDINGS: An aortic dissection not seen. No aortic aneurysm Celiac, SMA and RUBEN dO not demonstrate a significant abnormality Lungs are clear Liver, spleen, pancreas, adrenals, kidneys and bladder do not demonstrate a significant abnormality No evidence of diverticulitis. Normal appendix Small umbilical hernia. Small right inguinal hernia contains fat IMPRESSION: No evidence of an aortic dissection
--- NOTE | 2023-12-10 22:14 | ER ---
Nurse's Notes [facility] Name: Jean Paul Kemp II Age: 43 yrs Sex: Male : 1980 Arrival Date: 12/10/2023 Time: 18:06 Bed 13 Private MD: Diagnosis: NSTEMI, Acute Coronary Syndrome Presentation: 12/09 18:59 Coronavirus screen: At this time, the client does not indicate any symptoms associated aa5 with coronavirus-19. Ebola Screen: Patient denies travel to an Ebola-affected area in the 21 days before illness onset. Initial Sepsis Screen: Does the patient meet any 2 criteria? No. Patient's initial sepsis screen is negative. Does the patient have a suspected source of infection? No. Patient's initial sepsis screen is negative. Risk Assessment: Do you want to hurt yourself or someone else? Patient reports no desire to harm self or others. Onset of symptoms was December 10, 2023. 18:59 Acuity: ANNELIESE 3 aa5 18:59 Method Of Arrival: Ambulatory aa5 18:59 Chief complaint: Patient states: chest pain that began today around lunch time and c/o aa5 SOB on exertion. Historical: - Allergies: 18:59 Chocolate; aa5 18:59 PENICILLINS; aa5 - PMHx: 18:59 Diverticulitis; Kidney stones; aa5 - PSHx: 18:59 Lithotripsy; aa5 - Immunization history:: Adult Immunizations unknown. - Infectious Disease History:: Denies. - Social history:: Smoking status: Patient denies any tobacco usage or history of. Screenin:30 [facility] ED Fall Risk Assessment (Adult) History of falling in the last 3 months, rg5 including since admission No falls in past 3 months (0 pts) Confusion or Disorientation No (0 pts) Intoxicated or Sedated No (0 pts) Impaired Gait No (0 pts) Mobility Assist Device Used No (0 pt) Altered Elimination No (0 pt) Score/Fall Risk Level 0 - 2 = Low Risk Oriented to surroundings, Maintained a safe environment, Used ambulatory aids as needed (educated on \T\ assisted with). Abuse screen: Denies threats or abuse. Nutritional screening: No deficits noted. Tuberculosis screening: No symptoms or risk factors identified. Assessment: 19:30 General: Appears in no apparent distress. Behavior is calm, cooperative, appropriate rg5 for age. 19:30 Pain: Complains of pain in chest Pain currently is 9 out of 10 on a pain scale. Quality rg5 of pain is described as aching. Neuro: Level of Consciousness is awake, alert, obeys commands, Oriented to person, place, time. Cardiovascular: Reports chest pain, Heart tones S1 S2 Patient's skin is warm and dry. Rhythm is sinus rhythm. Respiratory: Airway is patent Trachea midline Respiratory effort is even, unlabored. GI: Abdomen is non-distended, Bowel sounds present X 4 quads. Abd is soft and non tender. : No signs and/or symptoms were reported regarding the genitourinary system. EENT: Tympanic membrane. Derm: Skin is intact, Skin is dry, Skin is normal. Musculoskeletal: Circulation, motion, and sensation intact. Range of motion: intact in all extremities. 19:30 Respiratory: Breath sounds are clear bilaterally. rg5 20:00 Reassessment: Patient and/or family updated on plan of care and expected duration. Pain rg5 level reassessed. Patient is alert, oriented x 3, equal unlabored respirations, skin warm/dry/pink. Patient states feeling better. 21:16 Reassessment: Patient and/or family updated on plan of care and expected duration. Pain rg5 level reassessed. Patient is alert, oriented x 3, equal unlabored respirations, skin warm/dry/pink. Patient states feeling better. Patient states symptoms have improved. 22:00 Reassessment: Patient and/or family updated on plan of care and expected duration. Pain rg5 level reassessed. Patient is alert, oriented x 3, equal unlabored respirations, skin warm/dry/pink. 23:10 Reassessment: Patient and/or family updated on plan of care and expected duration. Pain rg5 level reassessed. Patient is alert, oriented x 3, equal unlabored respirations, skin warm/dry/pink. Patient states symptoms have improved. Vital Signs: 18:59 BP 133 / 104; Pulse 82; Resp 16 S; Temp 98.7(TE); Pulse Ox 100% on R/A; Weight 90.72 kg aa5 (R); Height 5 ft. 10 in. (R); 20:15 BP 131 / 99; Pulse 85; Resp 18; Pulse Ox 98% on R/A; Pain 6/10; rg5 21:15 BP 119 / 89; Pulse 81; Resp 16; Pulse Ox 99% on R/A; Pain 0/10; rg5 22:30 BP 118 / 79; Pulse 69; Resp 17; Pulse Ox 96% on R/A; Pain 6/10; rg5 18:59 Body Mass Index 28.70 (90.72 kg, 177.8 cm) aa5 20:15 Pain Scale: Adult rg5 21:15 Pain Scale: Adult rg5 22:30 Pain Scale: Adult rg5 ED Course: 18:09 Patient arrived in ED. mg5 18:25 Philipp Ross MD is Attending Physician. danny 18:59 Arm band placed on. aa5 19:00 Triage completed. aa5 19:04 EKG completed in triage. Results shown to MD. aa5 19:29 XRAY Chest (1 view) In Process Unspecified. EDMS 19:30 Patient has correct armband on for positive identification. Bed in low position. Call rg5 light in reach. Side rails up X 1. 19:30 No provider procedures requiring assistance completed. rg5 20:18 Cedrick Crowell, RN is Primary Nurse. rg5 20:21 Inserted saline lock: 20 gauge in right antecubital area, using aseptic technique. rv1 Blood collected. Flushed with 10 mL NS. 20:22 Lipase Sent. rv1 20:22 Basic Metabolic Panel Sent. rv1 20:22 CBC with Diff Sent. rv1 20:22 LFT's Sent. rv1 20:22 Magnesium Sent. rv1 20:22 NT PRO-BNP Sent. rv1 20:22 PT-INR Sent. rv1 20:22 Troponin HS Sent. rv1 20:32 Attending Physician role handed off by Philipp Ross MD sp4 20:32 Luis A Yu MD is Attending Physician. sp4 21:36 CT Aorta for Dissection In Process Unspecified. EDMS 22:00 Inserted saline lock: 20 gauge in right wrist, using aseptic technique. Blood rg5 collected. Flushed with 10 mL NS. 22:13 Adalberto Madera MD is Hospitalizing Provider. sp4 23:10 Ptt, Activated Sent. rg5 23:25 Patient admitted, IV remains in place. rg5 23:26 Provided Education on: need for admit. rg5 Administered Medications: 20:15 Drug: Famotidine IVP 20 mg IVP once; dilute with 10 mL 0.9% NaCl; give over 2 minutes rg5 Route: IVP; Site: right antecubital; 21:16 Follow up: Response: No adverse reaction rg5 20:38 Drug: Aspirin PO Chewable Tablet 324 mg PO once; 81 mg tablets x 4 Route: PO; rg5 21:16 Follow up: Response: No adverse reaction rg5 20:39 Drug: Metoprolol PO 50 mg PO once Route: PO; rg5 21:16 Follow up: Response: No adverse reaction; Blood pressure is lowered rg5 22:30 Drug: morphine IVP or IV 4 mg IVP once over 4 mins Route: IVP; Infused Over: 4 mins; rg5 Site: right antecubital; 23:22 Follow up: Response: No adverse reaction; Pain is decreased rg5 22:35 Drug: Pantoprazole IVP 40 mg IVP once Route: IVP; Site: right antecubital; rg5 23:23 Follow up: Response: No adverse reaction rg5 22:35 Drug: NS 0.9% IV 500 ml 500 ml IV at 1 bolus once; to be given as a bolus over 30 rg5 minutes Volume: 500 ml; Route: IV; Rate: 1 bolus; Site: right antecubital; 23:22 Follow up: IV Status: Completed infusion; IV Intake: 500ml rg5 22:59 Drug: Heparin ([place]-Bolus No thrombolytic) - HEParin IVP 60 units/kg IVP once; Max 5000 rg5 units {Co-Signature: cp4 (Ana Cervantes).} Route: IVP; Site: right wrist; 23:22 Follow up: Response: No adverse reaction rg5 23:00 Drug: Heparin ([place] Drip) 12 units/kg/[place] - ([place] [address] units, D5W IV 500 ml) IV at rg5 calculated rate Per protocol; Max initial rate 1000 units/hr {Co-Signature: cp4 (Ana Cervantes).} Route: IV; Rate: calculated rate; Site: right wrist; 23:23 Drug: NS 0.9% IV 1000 ml IV at 125 ml/hr continuous Route: IV; Rate: 125 ml/hr; Site: rg5 right antecubital; Medication: 19:30 VIS not applicable for this client. rg5 Intake: 23:22 IV: 500ml; Total: 500ml. rg5 Outcome: 22:13 Decision to Hospitalize by Provider. sp4 23:25 Admitted to Med/surg accompanied by nurse, via stretcher, rg5 23:25 Condition: stable 23:25 Instructed on the need for admit, 23:49 Patient left the ED. rg5 Signatures: Dispatcher [employer] EDPhilipp Rodríguez MD MD cha Calderon, Audri, RN RN aa5 [place] rvLuis A Fonseca MD MD sp4 [place], [place] mg5 Cedrick Crowell, RN RN rg5 Ana Cervantes 4
--- NOTE | 2023-12-10 22:14 | EDPHYS ---
Physician Documentation [facility] Name: Jean Paul Kemp II Age: 43 yrs Sex: Male : 1980 Arrival Date: 12/10/2023 Time: 18:06 Bed 13 Private MD: ED Physician Luis A Yu HPI: 12/09 20:07 This 43 yrs old Male presents to ER via Ambulatory with complaints of danny Shortness Of Breath, Chest Tightness. 20:07 The patient has shortness of breath with light activity. Onset: The symptoms/episode danny began/occurred today. Duration: The symptoms are continuous. Historical: - Allergies: 18:59 Chocolate; aa5 18:59 PENICILLINS; aa5 - PMHx: 18:59 Diverticulitis; Kidney stones; aa5 - PSHx: 18:59 Lithotripsy; aa5 - Immunization history:: Adult Immunizations unknown. - Infectious Disease History:: Denies. - Social history:: Smoking status: Patient denies any tobacco usage or history of. ROS: 20:27 Constitutional: Negative for fever, chills, and weight loss, Eyes: Negative for injury, danny pain, redness, and discharge, ENT: Negative for injury, pain, and discharge, Neck: Negative for injury, pain, and swelling, Respiratory: Negative for shortness of breath, cough, wheezing, and pleuritic chest pain, Back: Negative for injury and pain, : Negative for injury, bleeding, discharge, and swelling, MS/Extremity: Negative for injury and deformity, Skin: Negative for injury, rash, and discoloration, Neuro: Negative for headache, weakness, numbness, tingling, and seizure, Psych: Negative for depression, anxiety, suicide ideation, homicidal ideation, and hallucinations, Allergy/Immunology: Negative for hives, rash, and allergies, Endocrine: Negative for neck swelling, polydipsia, polyuria, polyphagia, and marked weight changes, Hematologic/Lymphatic: Negative for swollen nodes, abnormal bleeding, and unusual bruising, 20:27 Cardiovascular: Positive for chest pain, 20:27 Respiratory: Positive for shortness of breath, 20:27 Abdomen/GI: Positive for abdominal pain, abdominal cramps, flatulence, of the left lower quadrant, 20:27 MS/extremity: Negative for acute changes, injury or acute deformity, decreased range of motion, swelling, tenderness, tingling, 20:27 Skin: Negative for abrasions, rash, 20:27 Neuro: Negative for altered mental status, gait disturbance, weakness, Exam: 20:28 Constitutional: This is a well developed, well nourished patient who is awake, alert, danny and in no acute distress. Head/Face: Normocephalic, atraumatic. Eyes: Pupils equal round and reactive to light, extra-ocular motions intact. Lids and lashes normal. Conjunctiva and sclera are non-icteric and not injected. Cornea within normal limits. Periorbital areas with no swelling, redness, or edema. ENT: Nares patent. No nasal discharge, no septal abnormalities noted. Tympanic membranes are normal and external auditory canals are clear. Oropharynx with no redness, swelling, or masses, exudates, or evidence of obstruction, uvula midline. Mucous membranes moist. Neck: Trachea midline, no thyromegaly or masses palpated, and no cervical lymphadenopathy. Supple, full range of motion without nuchal rigidity, or vertebral point tenderness. No Meningismus. Chest/axilla: Normal chest wall appearance and motion. Nontender with no deformity. No lesions are appreciated. Cardiovascular: Regular rate and rhythm with a normal S1 and S2. No gallops, murmurs, or rubs. Normal PMI, no JVD. No pulse deficits. Respiratory: Lungs have equal breath sounds bilaterally, clear to auscultation and percussion. No rales, rhonchi or wheezes noted. No increased work of breathing, no retractions or nasal flaring. Abdomen/GI: Soft, non-tender, with normal bowel sounds. No distension or tympany. No guarding or rebound. No evidence of tenderness throughout. Back: No spinal tenderness. No costovertebral tenderness. Full range of motion. Male : Normal genitalia with no discharge or lesions. Skin: Warm, dry with normal turgor. Normal color with no rashes, no lesions, and no evidence of cellulitis. MS/ Extremity: Pulses equal, no cyanosis. Neurovascular intact. Full, normal range of motion. Neuro: Awake and alert, GCS 15, oriented to person, place, time, and situation. Cranial nerves II-XII grossly intact. Motor strength 5/5 in all extremities. Sensory grossly intact. Cerebellar exam normal. Normal gait. Psych: Awake, alert, with orientation to person, place and time. Behavior, mood, and affect are within normal limits. 20:28 ECG was reviewed by the Attending Physician. 20:30 Musculoskeletal/extremity: Circulation is intact in all extremities. Sensation intact. danny Compartment Syndrome exam of affected extremity: is normal. Weight bearing: able to fully bear weight, DVT Exam: No signs of deep vein thrombosis. no pain, no swelling, no tenderness, negative Homans' sign noted on exam, no appreciated bluish discoloration, no erythema, no increased warmth, Vital Signs: 18:59 BP 133 / 104; Pulse 82; Resp 16 S; Temp 98.7(TE); Pulse Ox 100% on R/A; Weight 90.72 kg aa5 (R); Height 5 ft. 10 in. (R); 20:15 BP 131 / 99; Pulse 85; Resp 18; Pulse Ox 98% on R/A; Pain 6/10; rg5 21:15 BP 119 / 89; Pulse 81; Resp 16; Pulse Ox 99% on R/A; Pain 0/10; rg5 22:30 BP 118 / 79; Pulse 69; Resp 17; Pulse Ox 96% on R/A; Pain 6/10; rg5 18:59 Body Mass Index 28.70 (90.72 kg, 177.8 cm) aa5 20:15 Pain Scale: Adult rg5 21:15 Pain Scale: Adult rg5 22:30 Pain Scale: Adult rg5 MDM: 18:28 Medical Screening Exam initiated danny 20:30 Differential diagnosis: Anxiety Reaction asthma, Bronchitis CHF exacerbation, danny Pneumothorax pulmonary edema, Pulmonary Embolism reactive airway disease, Sepsis Unstable Angina. Immunization status:. Data reviewed: vital signs, nurses notes, lab test result(s), EKG, radiologic studies, CT scan, plain films. Consideration of Admission/Observation Escalation of care including admission/observation considered. I considered the following discharge prescriptions or medication management in the emergency department Medications were administered in the Emergency Department. See APR. 22:15 ED course: EXAM: CTA of the chest, abdomen and pelvis HISTORY: Chest and abdominal pain sp4 COMPARISON: November 2023 CT abdomen TECHNIQUE: Multiple contiguous axial images were obtained a CTA of the chest and abdomen with contrast per aortic dissection protocol. Sagittal and coronal 3-D MIP reformats were performed. 100 cc Isovue-370 administered intravenously.Automated exposure control, adjustment of the mA and kV according to the patient size, and iterative reconstruction. Unless otherwise specified, incidental findings do not require dedicated imaging follow-up. FINDINGS: An aortic dissection not seen. No aortic aneurysm Celiac, SMA and RUBEN dO not demonstrate a significant abnormality Lungs are clear Liver, spleen, pancreas, adrenals, kidneys and bladder do not demonstrate a significant abnormality No evidence of diverticulitis. Normal appendix Small umbilical hernia. Small right inguinal hernia contains fat IMPRESSION: No evidence of an aortic dissection. 22:17 ED course: Procedure: Chest Single View HISTORY: Chest pain COMPARISON: none FINDINGS: sp4 The lungs appear clear of acute infiltrate. No significant pleural effusion noted. The heart is normal size. IMPRESSION: No acute abnormality is displayed. . 22:18 ED course: CT review - EXAMINATION: CTABDOMEN AND PELVIS WITH CONTRAST CLINICAL sp4 INDICATION: Abdominal pain TECHNIQUE: CT abdomen and pelvis was performed, after the administration of 100 cc Isovue-300.. Sagittal and coronal reconstructions were obtained. One or more of the following dose reduction techniques were used: Automated exposure control, adjustment of the mA and kV according to patient size, and iterative reconstruction. Unless otherwise specified, incidental findings do not require dedicated imaging follow-up. [id number]. Oral contrast was not given which limits evaluation of bowel and appendix. COMPARISON: 2022 FINDINGS: Tiny hepatic cyst. 1spleen, pancreas, adrenals and kidneys appear unremarkable No evidence of diverticulitis. Normal appendix. Small umbilical hernia. Spondylosis L5-S1. Small right inguinal hernia contains fat : IMPRESSION: No acute abnormality displayed . 22:18 Consideration of Admission/Observation Patient was admitted/placed on observation. sp4 Management of patient was discussed with the following: Hospitalist: MD Santy . Curtain Feller Blindstitch: Cardiology Jessica FORTUNE . ED course: Elevated troponin, Admitted for Cardiology consult . 12/09 18:30 Order name: Basic Metabolic Panel; Complete Time: 21:55 [facility] 12/09 18:30 Order name: CBC with Diff; Complete Time: 21:55 [facility] 12/09 18:30 Order name: LFT's; Complete Time: 21:55 [facility] 12/09 18:30 Order name: Magnesium; Complete Time: 21:55 [facility] 12/09 18:30 Order name: NT PRO-BNP; Complete Time: 21:55 danny 12/09 18:30 Order name: PT-INR; Complete Time: 21:55 danny 12/09 18:30 Order name: Troponin HS; Complete Time: 21:55 [facility] 12/09 18:30 Order name: Lipase; Complete Time: 21:55 [facility] 12/09 20:07 Order name: Urinalysis w/ reflexes; Complete Time: 21:55 [facility] 12/09 22:11 Order name: Troponin High Sensitivity sp4 12/09 22:26 Order name: Urinalysis w/ reflexes EDMS 12/09 22:26 Order name: CBC with Automated Diff EDMS 12/09 22:26 Order name: CBC with Automated Diff EDMS 12/09 22:26 Order name: Comprehensive Metabolic Panel EDMS 12/09 22:26 Order name: Comprehensive Metabolic Panel EDMS 12/09 22:26 Order name: Troponin High Sensitivity EDMS 12/09 22:26 Order name: Troponin High Sensitivity EDMS 12/09 22:26 Order name: Troponin High Sensitivity EDMS 12/09 22:26 Order name: Troponin High Sensitivity EDMS 12/09 22:56 Order name: Ptt, Activated rg5 12/09 23:19 Order name: PTT, Activated Partial Thromb EDMS 12/09 18:30 Order name: XRAY Chest (1 view); Complete Time: 20:00 [facility] 12/09 20:06 Order name: CT Aorta for Dissection; Complete Time: 21:55 [facility] 12/09 22:26 Order name: CONS Physician Consult EDTX 12/09 18:30 Order name: Cardiac monitoring; Complete Time: 20:22 [facility] 12/09 18:30 Order name: EKG - Nurse/Tech; Complete Time: 19:05 [facility] 12/09 18:30 Order name: IV Saline Lock; Complete Time: 20:22 [facility] 12/09 18:30 Order name: Labs collected and sent; Complete Time: 20:22 [facility] 12/09 18:30 Order name: O2 Per Protocol; Complete Time: 20:22 [facility] 12/09 18:30 Order name: O2 Sat Monitoring; Complete Time: 20:22 [facility] EC:28 Rate is 83 beats/min. Rhythm is regular. QRS Harrison is Normal. NE interval is normal. QRS danny interval is normal. QT interval is normal. No Q waves. T waves are Normal. No ST changes noted. Clinical impression: Normal ECG and No evidence of ischemia. Interpreted by me. Reviewed by me. Administered Medications: 20:15 Drug: Famotidine IVP 20 mg IVP once; dilute with 10 mL 0.9% NaCl; give over 2 minutes rg5 Route: IVP; Site: right antecubital; 21:16 Follow up: Response: No adverse reaction rg5 20:38 Drug: Aspirin PO Chewable Tablet 324 mg PO once; 81 mg tablets x 4 Route: PO; rg5 21:16 Follow up: Response: No adverse reaction rg5 20:39 Drug: Metoprolol PO 50 mg PO once Route: PO; rg5 21:16 Follow up: Response: No adverse reaction; Blood pressure is lowered rg5 22:30 Drug: morphine IVP or IV 4 mg IVP once over 4 mins Route: IVP; Infused Over: 4 mins; rg5 Site: right antecubital; 23:22 Follow up: Response: No adverse reaction; Pain is decreased rg5 22:35 Drug: Pantoprazole IVP 40 mg IVP once Route: IVP; Site: right antecubital; rg5 23:23 Follow up: Response: No adverse reaction rg5 22:35 Drug: NS 0.9% IV 500 ml 500 ml IV at 1 bolus once; to be given as a bolus over 30 rg5 minutes Volume: 500 ml; Route: IV; Rate: 1 bolus; Site: right antecubital; 23:22 Follow up: IV Status: Completed infusion; IV Intake: 500ml rg5 22:59 Drug: Heparin ([place]-Bolus No thrombolytic) - HEParin IVP 60 units/kg IVP once; Max 5000 rg5 units {Co-Signature: cp4 (Ana Cervantes).} Route: IVP; Site: right wrist; 23:22 Follow up: Response: No adverse reaction rg5 23:00 Drug: Heparin ([place] Drip) 12 units/kg/hr - ([place] [address] units, D5W IV 500 ml) IV at rg5 calculated rate Per protocol; Max initial rate 1000 units/hr {Co-Signature: cp4 (Ana Cervantes).} Route: IV; Rate: calculated rate; Site: right wrist; 23:23 Drug: NS 0.9% IV 1000 ml IV at 125 ml/hr continuous Route: IV; Rate: 125 ml/hr; Site: rg5 right antecubital; Disposition Summary: 12/10/23 22:13 Hospitalization Ordered Notes: Hospitalization Status: Inpatient Admission sp4 Provider: Adalberto Madera spKristy Location: Telemetry/MedSurg (Inpatient) sp4 Condition: Stable sp4 Problem: new sp4 Symptoms: have improved sp4 Bed/Room Type: Standard sp4 Room Assignment: 223(12/10/23 22:31) vk Diagnosis - NSTEMI, Acute Coronary Syndrome sp4 Forms: - Medication Reconciliation Form sp4 - SBAR form sp4 - Leadership Thank You Letter sp4 Signatures: Dispatcher [employer] EDMS Philipp Ross MD MD cha Calderon, Audri, RN RN aa5 Luis A Yu MD MD sp4 Laly Rogers Rommel, RN RN rg5 Ana Cervantes 4 Corrections: (The following items were deleted from the chart) 18:30 18:30 BASIC METABOLIC PANEL+C.LAB.BRZ ordered. EDMS EDMS 18:30 18:30 CBC+H.LAB.BRZ ordered. EDMS EDMS 18:30 18:30 HEPATIC FUNCTION+C.LAB.BRZ ordered. EDMS EDMS 18:30 18:30 MAGNESIUM+C.LAB.BRZ ordered. EDMS EDMS 18:30 18:30 PROBNP+C.LAB.BRZ ordered. EDMS EDMS 18:30 18:30 PROTIME (+INR)+COAG.LAB.BRZ ordered. EDMS EDMS 18:30 18:30 Troponin High Sensitivity+C.LAB.BRZ ordered. EDMS EDMS 18:30 18:30 LIPASE+C.LAB.BRZ ordered. EDMS EDMS 18:30 18:30 Chest Single View+RAD.RAD.BRZ ordered. EDMS EDMS 20:07 20:07 Urinalysis+U.LAB.BRZ ordered. EDMS EDMS 22:31 22:13 sp4 vk
[2023-12-10] MEDS ORDERED: ONDANSETRON 4 MG/2 ML VIAL IV PRN (22:21)
[2023-12-10] MEDS ORDERED: ACETAMINOPHEN 325 MG TABLET PO PRN (22:21)
--- NOTE | 2023-12-10 22:26 | P.HP ---
Certification for Inpatient Patient admitted to: Inpatient With expected LOS: >2 Midnights Practitioner: I am a practitioner with admitting privileges, knowledge of patient current condition, hospital course, and medical plan of care. Services: Services provided to patient in accordance with Admission requirements found in Title 42 Section 412.3 of the Code of Federal Regulations Patient History Date of Service: 12/10/23 Reason for admission: NSTEMI History of Present Illness: 43 yrs old Male with no significant past medical history, non-smoker came to ER with chest discomfort and shortness of breath. Patient started having symptoms noontime. Associated with chest pressure located retrosternally, with radiation to left arm and to the back associated with shortness of breath even with minimal activities. Denies any fever or chills. No sick contacts . Denies any nausea vomiting and diarrhea. Patient continues to have chest pain associated with shortness of breath with the pain with minimal activities and was brought to ER. Patient was assessed in the ER and was found to have elevated troponin and was admitted for further management of chest pain rule out ACS / NSTEMI Home medications list reviewed: Yes - Past Medical/Surgical History Past Medical History: Reviewed- Non-Contributory Past Surgical History: Reviewed- Non-Contributory - Family History Family History: Reviewed- Non-Contributory - Social History Smoking Status: Never smoker Review of Systems 10-point ROS is otherwise unremarkable Physical Examination - Vital Signs Temperature: 98.2 F Blood Pressure: 138/72 Pulse: 76 Respirations: 18 Pulse Ox (%): 95 - Physical Exam General: Alert, Oriented x3, Cooperative, Mild distress HEENT: Atraumatic, Normocephalic Neck: Supple Respiratory: Clear to auscultation bilaterally, Normal air movement Cardiovascular: No edema, Regular rate/rhythm, Normal S1 S2 Capillary refill: <2 Seconds Gastrointestinal: Soft and benign, W/out hepatosplenomegaly Musculoskeletal: No clubbing, No swelling Integumentary: No rashes, No breakdown Neurological: Normal gait, Normal speech, Normal strength at 5/5 x4 extr, Cranial nerves 3-12 intact, Normal affect Lymphatics: No axilla or inguinal lymphadenopathy - Studies Laboratory Data (last 24 hrs) 12/10/23 12/10/23 12/10/23 20:19 20:19 20:19 WBC 9.80 Hgb 16.1 Hct 47.0 Plt Count 143 L PT 13.5 H INR 1.21 Sodium 136 Potassium 3.8 BUN 18 Creatinine 1.28 Glucose 105 Magnesium 2.1 Total Bilirubin 0.4 AST 20 ALT 43 Alkaline Phosphatase 99 Lipase 47 Assessment and Plan - Plan NSTEMI Will trend cardiac enzymes Will monitor telemetry Started on aspirin and statin EKG did not show any acute changes suggestive of ischemia Patient denies any chest pain Will get an echocardiogram Cardiology consult Started on heparin drip DVT prophylaxis Advanced directive full code Discharge Plan: Home Plan to discharge in: 48 Hours - Advance Directives Does patient have a Living Will: No Does patient have a Durable POA for Healthcare: No - Code Status/Comfort Care Code Status: Full Code Time Spent Managing Pts Care (In Minutes): 48
[2023-12-10] MEDS ORDERED: PANTOPRAZOLE 40 MG INJ ONE (22:38)
[2023-12-10] MEDS ORDERED: HEPARIN 5000 UNIT/ML 1 ML VIAL ONE (22:38)
[2023-12-10] MEDS ORDERED: MORPHINE 4 MG/ML SYR ONE (22:38)
[2023-12-10] MEDS ORDERED: NA CHLORIDE 0.9% 500 ML ONE (22:39)
[2023-12-10] MEDS ORDERED: HEPARIN/D5W 25,000 UNIT/500 ML BAG IV ONE (22:39)
[2023-12-10] MEDS ORDERED: NA CHLORIDE 0.9% 1,000 ML ONE (22:39)
[2023-12-10] MEDS: NA CHLORIDE 0.9% 1,000 ML IV SCH (23:00)
[2023-12-10] MEDS ORDERED: HEPARIN/D5W 25,000 UNIT/500 ML BAG IV PRN (23:04)
[2023-12-11] MEDS: HYDROCODONE/APAP 5/325 MG TAB PO PRN (00:17)
[2023-12-11 00:57] VITALS: BMI 28.5
[2023-12-11 05:04] LABS: Absolute Basophils 0.1 K/uL (0-0.5); Absolute Eosinophils 0.1 K/uL (0-0.5); Absolute Lymphocytes (CBC) 3.2 K/uL (0.7-4.9); Absolute Monocytes 1.2 K/uL (0.1-1.3); Absolute Neutrophil 3.7 K/uL (1.8-8.0); Basophils % 0.9 % (0-1.3); Eosinophils % 1.8 % (0-4.4); MCH 30.1 pg (27.0-35.0); MCHC 34.1 g/dL (32.0-36.0); MCV 88.3 fL (80-100); MPV 10.2 fL (7.6-11.3); Monocytes % 14.6 % (3.3-12.3); Neutrophils % 44.7 % (41.7-73.7); Nucleated Red Blood Cells % 0.1 % (0-0); Platelets 131 thou/uL (152-406); RBC Red Blood Cell Count 4.64 M/uL (4.33-5.43)
[2023-12-11 05:22] LABS: Albumin 3.2 g/dL (3.4-5.0); Albumin/Globulin Ratio 0.9 (1.1-1.8); Anion Gap 6.7 mEq/L (5.0-15.0); Bilirubin Total 0.4 mg/dL (0.2-1.0); Globulin 3.4 g/dL (2.3-3.5); Potassium 3.7 mEq/L (3.5-5.1); Protein, Total 6.6 g/dL (6.4-8.2)
[2023-12-11] MEDS: FLU (Fluarix Triv) TS24-25(6MOS UP)/PF 45 MCG/0.5 ML Syringe IM ONE (08:06)
[2023-12-11] MEDS: POTASSIUM CL SA 10 MEQ TAB PO ONE (08:06)
[2023-12-11] MEDS: MORPHINE 2 MG/ML SYR IV PRN (08:06)
[2023-12-11] MEDS: ASPIRIN EC 81 MG TAB PO SCH (08:06)
[2023-12-11] MEDS ORDERED: HYDROMORPHONE HCL 1 MG/ML INJ IV ONE (10:19)
--- NOTE | 2023-12-11 10:29 | P.DS ---
Admission Date: 12/10/23 Discharge Date: 12/11/23 Disposition: [facility] TO [facility] Discharge Condition: FAIR Reason for Admission: NSTEMI Consultations: Dr. Lopez Brief History of Present Illness: 43 yrs old Male with no significant past medical history, non-smoker came to ER with chest discomfort and shortness of breath. Patient started having symptoms noontime. Associated with chest pressure located retrosternally, with radiation to left arm and to the back associated with shortness of breath even with minimal activities. Denies any fever or chills. No sick contacts . Denies any nausea vomiting and diarrhea. Patient continues to have chest pain associated with shortness of breath with the pain with minimal activities and was brought to ER. Patient was assessed in the ER and was found to have elevated troponin and was admitted for further management of chest pain rule out ACS / NSTEMI Hospital Course: This morning Mr. Kemp was feeling a little better per report. He got up to void and has a sudden headache with chest pain. He states he also became short of breath. Repeat troponin this am elevated from 80s to 2766.6. Dr[address] Lopez notified. laborer cutting tool contacted and parts are down. Transfer for cardiac cath initiated. Patient notified of plan of care and voices understanding. Dr. Lopez in with patient. Patient vital signs are stable and repeat EKG in process. Nitro drip for chest pain relief ordered. Mr. Kemp transferred to ICU. Dr. Randle spoke to Dr. Harp at [facility] and he kindly accepts patient in transfer. Patient questions have been answered to the best of my ability. EKG remains unchanged with NSR VSS Mr. Kemp to be transferred via ground EMS to [facility] to Dr. Harp for cardiac cath. He was given ICU 204 room assignment. Vital Signs/Physical Exam: Temp Pulse Resp BP Pulse Ox 96.6 F L 55 17 113/66 99 12/11/23 08:00 12/11/23 08:00 12/11/23 08:00 12/11/23 08:00 12/11/23 08:00 General: Alert, In no apparent distress, Oriented x3, Other (anxious) HEENT: Atraumatic, Normocephalic Neck: Supple, 2+ carotid pulse no bruit Respiratory: Clear to auscultation bilaterally, Normal air movement Cardiovascular: No edema, Normal pulses, Regular rate/rhythm, Other (+chest pain, headache, EKG unchanged.) Capillary refill: <2 Seconds Gastrointestinal: Normal bowel sounds Musculoskeletal: No clubbing, No swelling Integumentary: No rashes Neurological: Normal speech, Normal tone, Normal affect Lymphatics: No axilla or inguinal lymphadenopathy External genitalia: Deferred Rectal: Deferred Laboratory Data at Discharge: WBC 8.40 thou/uL (4.3-10.9) 12/11/23 04:52 Hgb 14.0 g/dL (13.6-17.9) D 12/11/23 04:52 Hct 41.0 % (39.6-49.0) 12/11/23 04:52 Plt Count 131 thou/uL (152-406) L 12/11/23 04:52 PT 13.5 SECONDS (9.4-12.5) H 12/10/23 20:19 INR 1.21 12/10/23 20:19 APTT 61.8 SECONDS (24.3-36.9) H 12/11/23 09:01 Sodium 138 mEq/L (136-145) 12/11/23 04:52 Potassium 3.7 mEq/L (3.5-5.1) 12/11/23 04:52 BUN 18 mg/dL (7-18) 12/11/23 04:52 Creatinine 1.08 mg/dL (0.70-1.30) 12/11/23 04:52 Glucose 89 mg/dL (74-106) 12/11/23 04:52 Magnesium 2.1 mg/dL (1.6-2.4) 12/10/23 20:19 Total Bilirubin 0.4 mg/dL (0.2-1.0) 12/11/23 04:52 AST 14 U/L (15-37) L 12/11/23 04:52 ALT 35 U/L (16-61) 12/11/23 04:52 Alkaline Phosphatase 77 U/L (45-117) D 12/11/23 04:52 Lipase 47 U/L (13-75) 12/10/23 20:19 Home Medications: NK [No Home Meds] 12/10/23 Diet: NPO Activity: Bedrest [facility] [Primary Care Provider] -
--- NOTE | 2023-12-11 11:21 | P.CNS ---
Date of Consult: 12/11/23 Chief Complaint: NSTEMI History of Present Illness: Patient with no significant past medical history presented with chest pain that started yesterday, pressure in nature across chest, no radiation, rated as 7 out of 10, no associated cardiac symptoms, got relieved with ER medications but this morning chest elizabeth is worse again and troponin are uptrending. Allergies Penicillins Allergy (Verified 12/10/23 23:54) Itching Home medications list reviewed: Yes Home Medications: NK [No Home Meds] 12/10/23 - Past Medical/Surgical History -: kidney stones - Social History Alcohol use: Yes Caffeine use: Yes Place of Residence: Home Review of Systems 10-point ROS is otherwise unremarkable Physical Examination Temp Pulse Resp BP Pulse Ox 96.6 F L 55 17 113/66 99 12/11/23 08:00 12/11/23 08:00 12/11/23 08:00 12/11/23 08:00 12/11/23 08:00 General: Alert, In no apparent distress HEENT: Atraumatic, PERRLA, Mucous membr. moist/pink, EOMI, Sclerae nonicteric Neck: Supple, 2+ carotid pulse no bruit, No LAD, Without JVD or thyroid abnormality Respiratory: Clear to auscultation bilaterally, Normal air movement Cardiovascular: Regular rate/rhythm, Normal S1 S2 Gastrointestinal: Normal bowel sounds, No tenderness Musculoskeletal: No tenderness Integumentary: No rashes Neurological: Normal gait, Normal speech, Normal tone, Normal affect Lymphatics: No axilla or inguinal lymphadenopathy Laboratory Data (last 24 hrs) 12/10/23 12/10/23 12/10/23 22:31 20:19 20:19 WBC 9.80 Hgb 16.1 Hct 47.0 Plt Count 143 L PT 13.5 H INR 1.21 APTT 34.6 Sodium Potassium BUN Creatinine Glucose Magnesium Total Bilirubin AST ALT Alkaline Phosphatase Lipase 12/10/23 20:19 WBC Hgb Hct Plt Count PT INR APTT Sodium 136 Potassium 3.8 BUN 18 Creatinine 1.28 Glucose 105 Magnesium 2.1 Total Bilirubin 0.4 AST 20 ALT 43 Alkaline Phosphatase 99 Lipase 47 - Problems (1) NSTEMI (non-ST elevated myocardial infarction) Current Visit: Yes Status: Acute Plan: Patient cardiac enzymes are trending up, still ongoing chest pain, EKG nonspecific changes. - ASA 325 mg x1 was given in ER, continue ASA 81 mg daily - Heparin drip ACS protocol - NTG drip for chest pain relief. - Patient will need emergent coronary angiogram, but due to problem with our wheelabrator operator machine, patient will transfer to hospital with general production laborer capability.
[2023-12-11] MEDS: NITROGLYCERIN/D5W 50 MG/250 ML BTL IV SCH (11:58)
--- NOTE | 2023-12-11 12:18 | EKG ---
Test Date: 2023-12-10 Test Time: 19:03:34 Clay Preparation Supervisor: DAO MEASUREMENT RESULTS: Intervals: Rate: 83 MO: 160 QRSD: 90 QT: 348 QTc: 408 [place]: P: 9 MO: 160 QRS: 62 T: 29 INTERPRETIVE STATEMENTS: Normal sinus rhythm Normal ECG No previous ECG available for comparison Electronically Signed On 12-11-23 12:16:27 RESERVOIR ENGINEERING MANAGER by Woody Lopez
[2023-12-11 14:09] VITALS: O2SAT 100
[2023-12-11 14:11] VITALS: BP 108/74; TEMP 97.8
[2023-12-11] MEDS ORDERED: ATORVASTATIN 40 MG TAB PO SCH (21:00)
--- NOTE | 2023-12-13 11:58 | EKG ---
Test Date: 2023-12-11 Test Time: 11:06:22 Forepart Rounder: AGUEDAAT MEASUREMENT RESULTS: Intervals: Rate: 59 ID: [id number] QRSD: 94 QT: 410 QTc: 405 [place]: P: 17 ID: [id number] QRS: 74 T: 50 INTERPRETIVE STATEMENTS: Sinus bradycardia Otherwise normal ECG Compared to ECG 12/10/2023 19:03:34 Sinus rhythm no longer present Electronically Signed On 12-13-23 11:56:18 PRIMARY GRADE TEACHER by Woody Lopez
== END 2023-12-11 14:38 | disposition short-term general hospital (02) | DRG 282 ==
LOC: ER 18:06 → ERHOLD 22:37 → 2ND 23:00 → 3RD-ICU 12-11 11:55
PROVIDERS: ADMIT Family Medicine; ATTEND Hospitalist
DX: I21.4 Non-ST elevation (NSTEMI) myocardial infarction (principal); Z88.0 Allergy status to penicillin; Z23 Encounter for immunization; Z91.018 Allergy to other foods
CPT/HCPCS: 36415; 71045; 71275; 74175; 80048; 80053; 80076; 81001; 83690; 83735; 83880; 84484; 85025; 85610; 85730; 93005; 94760; 99285; J1644; J2270; J2470; J7030; J7040; Q9967